=== PATIENT | male | born 1970 | race Caucasian/White ===

== ENCOUNTER 2020-08-24 17:25 | Inpatient (IN) | payer BC, OTHER ==
[2020-08-24] MEDS ORDERED: BAMLANIVIMAB 700 MG in SODIUM CHLORIDE 180 ML IVPB ONE (19:32)
[2020-08-24 19:57] LABS: BASO % 0.3 % (0-2.0); EOS % 0.3 % (0-4.5); HEMOGLOBIN 13.7 GM/dL (11.7-16.9); LYMPH % 11.1 % (8-40); MCH 23.7 pg (25.7-33.7); MCHC 31.8 g/dl (32.0-35.9); MEAN CELL VOLUME 74.6 fl (80-96); NEUT % 76.3 % (42.8-82.8); PLATELET COUNT 171 K/MM3 (134-434); RBC 5.76 M/mm3 (4.00-5.60); RDW 18.5 % (11.9-15.9); WHITE BLOOD COUNT 4.3 K/mm3 (4.0-10.0)
[2020-08-24 20:23] LABS: BLOOD UREA NITROGEN 15.7 mg/dL (7-18); CALCIUM 7.8 mg/dL (8.5-10.1)
[2020-08-24 20:27] LABS: CREATININE 1.3 mg/dL (0.55-1.3)
[2020-08-24 20:29] LABS: BILIRUBIN,TOTAL 0.6 mg/dL (0.2-1); TOT PROT 6.3 g/dl (6.4-8.2)
[2020-08-24 20:46] LABS: EPI CELLS 7 /uL (0-25.1); HYALINE CASTS 2 /uL (0-3.1); URINE APPEARANCE CLEAR; URINE BACTERIA 6 /uL (0-1359); URINE BILIRUBIN NEGATIVE (NEGATIVE); URINE COLOR YELLOW; URINE GLUCOSE (UA) NEGATIVE (NEGATIVE); URINE KETONE TRACE (NEGATIVE); URINE LEUK ESTERASE NEGATIVE (NEGATIVE); URINE NITRITE NEGATIVE (NEGATIVE); URINE PROTEIN TRACE (NEGATIVE); URINE RBC 50 /uL (0-23.9); URINE WBC 3 /uL (0-25.8)
[2020-08-24] MEDS ORDERED: DEXAMETHASONE SOD PHOSPHATE 4 MG/1 ML VIAL IVPUSH ONE (20:57)
[2020-08-24] MEDS ORDERED: ACETAMINOPHEN 1000 MG/100 ML BAG IVPB ONE (20:59)
[2020-08-24] MEDS ORDERED: SODIUM CHLORIDE 0.9% 500 ML INFUS.BAG IV ONE (20:59)
[2020-08-24] MEDS ORDERED: DEXAMETHASONE SOD PHOSPHATE 10 MG/1 ML VIAL ONE (21:08)
[2020-08-24] MEDS ORDERED: ACETAMINOPHEN INJECTION 100 ML IVPB ONE (21:08)
[2020-08-24 21:24] LABS: INR 1.28 (0.83-1.09); PROTHROMBIN TIME (PATIENT) 15.4 SEC (9.7-13.0)
[2020-08-24] MEDS ORDERED: PIPERACILLIN/TAZOB 4.5 GM 4.5 GM in DEXTROSE 5%-WATER 100 ML IVPB ONE (21:26)
[2020-08-24 21:27] LABS: ACTIVATED PTT 33.4 SECONDS (25.2-36.5)
[2020-08-24] MEDS ORDERED: guaiFENesin/D-METHORPHAN HB 10 ML UNIT-DOSE CUPS ONE (21:32)
[2020-08-24 21:36] LABS: BILIRUBIN,DIRECT 0.2 mg/dL (0.0-0.2)
[2020-08-24 21:39] LABS: LDH 340 U/L (87-246)
[2020-08-24] MEDS ORDERED: guaiFENesin/D-M SUGAR-FREE/ACLHOL-FREE 118 ML BOTTLE PO ONE (21:50)
[2020-08-24] MEDS ORDERED: PIPERACILLIN/TAZOB 4.5 GM 4.5 GM/100 ML BAG IVPB ONE (22:39)
[2020-08-24] MEDS ORDERED: TESTOSTERONE CYPIONATE IM SCH (23:45)
[2020-08-25] MEDS ORDERED: VANCOMYCIN HCL 1,500 MG in DEXTROSE 5%-WATER - 500 ML IVPB ONE (00:19)
[2020-08-25] MEDS ORDERED: PIPERACILLIN/TAZOB 3.375 GM 3.375 GM in DEXTROSE 5%-WATER - 50 ML IVPB SCH ×3 (02:00→08:19)
[2020-08-25] MEDS: CLOTRIMAZOLE 10 MG TROCHE PO SCH ×4 (06:14→21:32)
[2020-08-25] MEDS ORDERED: INSULIN SLIDING SCALE (NOVOLOG) 1 VIAL SQ SCH (07:00)
[2020-08-25 07:29] LABS: BASO % 0.2 % (0-2.0); HEMATOCRIT 41.3 % (35.4-49); HEMOGLOBIN 13.2 GM/dL (11.7-16.9); LYMPH % 13.5 % (8-40); MCH 23.6 pg (25.7-33.7); MCHC 31.8 g/dl (32.0-35.9); MEAN PLT VOLUME 7.9 fl (7.5-11.1); MONO % 11.7 % (3.8-10.2); NEUT % 74.6 % (42.8-82.8); PLATELET COUNT 179 K/MM3 (134-434); RBC 5.58 M/mm3 (4.00-5.60); RDW 18.7 % (11.9-15.9)
[2020-08-25] MEDS ORDERED: sitaGLIPtin PHOSPHATE 50 MG TABLET ONE (07:32)
[2020-08-25] MEDS ORDERED: PIPERACILLIN/TAZOB 3.375 GM 3.375 GM/50 ML BAG IVPB ONE (07:32)
[2020-08-25 07:49] LABS: ALBUMIN 2.7 g/dl (3.4-5.0); CALCIUM 7.6 mg/dL (8.5-10.1)
[2020-08-25 07:50] LABS: BLOOD UREA NITROGEN 14.5 mg/dL (7-18); MAGNESIUM 2.2 mg/dL (1.8-2.4)
[2020-08-25 07:52] LABS: CREATININE 0.9 mg/dL (0.55-1.3)
[2020-08-25 07:53] LABS: PHOSPHOROUS 3.4 mg/dL (2.5-4.9)
[2020-08-25 07:54] LABS: TOT PROT 5.6 g/dl (6.4-8.2)
[2020-08-25 07:58] LABS: BILIRUBIN,TOTAL 0.4 mg/dL (0.2-1)
[2020-08-25] MEDS ORDERED: LACTATED RINGERS SOLUTION 1,000 ML/1,000 ML INFUS.BAG IV SCH (08:15)
[2020-08-25] MEDS ORDERED: METOPROLOL TARTRATE 50 MG TABLET (FP) ONE (09:34)
[2020-08-25] MEDS ORDERED: ENOXAPARIN NA (PORCINE) 40 MG/0.4 ML DISP.SYRIN SQ ONE (09:34)
[2020-08-25] MEDS ORDERED: lamoTRIgine 100 MG TABLET ONE (09:34)
[2020-08-25] MEDS: lamoTRIgine 100 MG TABLET PO SCH ×2 (09:45→21:31)
[2020-08-25] MEDS: ENOXAPARIN NA (PORCINE) 40 MG/0.4 ML DISP.SYRIN SQ SCH (09:45)
[2020-08-25] MEDS: METOPROLOL TARTRATE 50 MG TABLET (FP) PO SCH ×2 (09:45→21:31)
[2020-08-25] MEDS ORDERED: PATIENT'S OWN MEDICATION (NON-FORMULARY) (Omeprazole Pediatric Solution 20 MG Capsule.Dr) PO SCH (10:00)
[2020-08-25] MEDS ORDERED: METOPROLOL TARTRATE 25 MG TABLET (FP) PO SCH (10:00)
[2020-08-25] MEDS ORDERED: LIRAGLUTIDE 3 MG/0.5 ML SQ SCH (10:00)
[2020-08-25] MEDS ORDERED: TADALAFIL 5 MG PO SCH (10:00)
[2020-08-25] MEDS ORDERED: buPROPion HCL 100 MG TABLET PO SCH (10:00)
[2020-08-25] MEDS ORDERED: LISINOPRIL 5 MG TABLET ONE (10:51)
[2020-08-25] MEDS: LISINOPRIL 5 MG TABLET PO SCH (10:59)
[2020-08-25] MEDS: BUPROPION HCL 300 MG, BUPROPION HCL 150 MG PO SCH (10:59)
[2020-08-25 11:32] LABS: PH,URINE 5.5 (5.0-8.0); URINE APPEARANCE CLEAR; URINE BILIRUBIN NEGATIVE (NEGATIVE); URINE COLOR YELLOW; URINE GLUCOSE (UA) NEGATIVE (NEGATIVE); URINE KETONE NEGATIVE (NEGATIVE); URINE LEUK ESTERASE NEGATIVE (NEGATIVE); URINE NITRITE NEGATIVE (NEGATIVE); URINE PROTEIN NEGATIVE (NEGATIVE)
[2020-08-25 13:46] VITALS: BMI 32.7
[2020-08-25] MEDS ORDERED: PIPERACILLIN/TAZOBACTAM 3.375 GM VIAL IVPB ONE (17:21)
[2020-08-25] MEDS ORDERED: DEXTROSE 5%-WATER - 50 ML IVPB ONE (17:21)
[2020-08-25] MEDS: PIPERACILLIN/TAZOB 3.375 GM 3.375 GM in DEXTROSE 5%-WATER - 50 ML IVPB SCH (17:30)
[2020-08-25] MEDS ORDERED: PT OWN MED DRAWER 7, Y5N ONE ×3 (18:27→21:47)
[2020-08-25] MEDS: ATORVASTATIN CA 10 MG TABLET (FP) PO SCH (21:31)
[2020-08-25] MEDS: rOPINIRole HCL 2 MG TABLET (FP) PO SCH (22:35)
[2020-08-25] MEDS ORDERED: guaiFENesin/D-M SUGAR-FREE/ACLHOL-FREE 118 ML BOTTLE PO ONE (22:47)
[2020-08-26] MEDS ORDERED: PT OWN MED DRAWER 7, Y5N ONE ×4 (00:47→21:58)
[2020-08-26] MEDS: CLOTRIMAZOLE 10 MG TROCHE PO SCH ×6 (00:48→22:15)
[2020-08-26] MEDS ORDERED: PIPERACILLIN/TAZOBACTAM 3.375 GM VIAL IVPB ONE ×3 (02:07→17:48)
[2020-08-26] MEDS ORDERED: DEXTROSE 5%-WATER - 50 ML IVPB ONE ×3 (02:07→17:48)
[2020-08-26] MEDS: PIPERACILLIN/TAZOB 3.375 GM 3.375 GM in DEXTROSE 5%-WATER - 50 ML IVPB SCH ×3 (02:18→18:32)
[2020-08-26] MEDS ORDERED: ACETAMINOPHEN 325 MG TABLET (FP) PO ONE (07:15)
[2020-08-26 07:25] LABS: BASO % 0.4 % (0-2.0); EOS % 0.3 % (0-4.5); HEMATOCRIT 39.9 % (35.4-49); HEMOGLOBIN 12.7 GM/dL (11.7-16.9); MCH 23.4 pg (25.7-33.7); MCHC 31.9 g/dl (32.0-35.9); MEAN CELL VOLUME 73.6 fl (80-96); MONO % 7.6 % (3.8-10.2); NEUT % 83.7 % (42.8-82.8); PLATELET COUNT 185 K/MM3 (134-434); RBC 5.42 M/mm3 (4.00-5.60); RDW 18.4 % (11.9-15.9)
[2020-08-26 07:36] LABS: ALBUMIN 2.7 g/dl (3.4-5.0); BLOOD UREA NITROGEN 12.5 mg/dL (7-18); CALCIUM 7.6 mg/dL (8.5-10.1)
[2020-08-26 07:42] LABS: BILIRUBIN,TOTAL 0.5 mg/dL (0.2-1); TOT PROT 5.3 g/dl (6.4-8.2)
[2020-08-26] MEDS: METOPROLOL TARTRATE 50 MG TABLET (FP) PO SCH ×2 (09:08→22:14)
[2020-08-26] MEDS: ENOXAPARIN NA (PORCINE) 40 MG/0.4 ML DISP.SYRIN SQ SCH (09:08)
[2020-08-26] MEDS: LISINOPRIL 5 MG TABLET PO SCH (09:09)
[2020-08-26] MEDS: BUPROPION HCL 300 MG, BUPROPION HCL 150 MG PO SCH (09:13)
[2020-08-26 09:14] LABS: HIV INTERPRETATION NEGATIVE (NEGATIVE)
[2020-08-26] MEDS: TAMSULOSIN HCL 0.4 MG CAP PO SCH (10:31)
[2020-08-26] MEDS ORDERED: DEXAMETHASONE SOD PHOSPHATE 4 MG/1 ML VIAL IVPUSH ONE (12:06)
[2020-08-26] MEDS: guaiFENesin/D-METHORPHAN HB 10 ML UNIT-DOSE CUPS PO PRN (13:21)
[2020-08-26] MEDS: ACETAMINOPHEN 325 MG TABLET (FP) PO PRN (13:21)
[2020-08-26] MEDS: FAMOTIDINE 20 MG TABLET PO SCH (13:21)
[2020-08-26] MEDS: lamoTRIgine 100 MG TABLET PO SCH ×2 (14:02→22:14)
[2020-08-26] MEDS ORDERED: lamoTRIgine 100 MG TABLET PO ONE (14:30)
[2020-08-26] MEDS ORDERED: IBUPROFEN 400 MG TABLET (FP) PO ONE (16:15)
[2020-08-26] MEDS ORDERED: lamoTRIgine 100 MG TABLET PO SCH (18:00)
[2020-08-26 19:16] LABS: PH,URINE 5.5 (5.0-8.0); URINE APPEARANCE CLOUDY; URINE BILIRUBIN NEGATIVE (NEGATIVE); URINE COLOR YELLOW; URINE GLUCOSE (UA) NEGATIVE (NEGATIVE); URINE KETONE NEGATIVE (NEGATIVE); URINE LEUK ESTERASE NEGATIVE (NEGATIVE); URINE NITRITE NEGATIVE (NEGATIVE); URINE PROTEIN NEGATIVE (NEGATIVE); URINE UROBILINOGEN 0.2 mg/dL (0.2-1.0)
[2020-08-26] MEDS ORDERED: DEXAMETHASONE 4 MG TABLET (FP) PO SCH (22:00)
[2020-08-26] MEDS: ATORVASTATIN CA 10 MG TABLET (FP) PO SCH (22:14)
[2020-08-26] MEDS: rOPINIRole HCL 2 MG TABLET (FP) PO SCH (22:16)
[2020-08-27] MEDS ORDERED: PIPERACILLIN/TAZOBACTAM 3.375 GM VIAL IVPB ONE ×4 (02:45→21:59)
[2020-08-27] MEDS ORDERED: DEXTROSE 5%-WATER - 50 ML IVPB ONE ×3 (02:45→16:19)
[2020-08-27] MEDS: PIPERACILLIN/TAZOB 3.375 GM 3.375 GM in DEXTROSE 5%-WATER - 50 ML IVPB SCH ×3 (02:49→18:03)
[2020-08-27] MEDS: CLOTRIMAZOLE 10 MG TROCHE PO SCH ×5 (05:17→21:42)
[2020-08-27] MEDS ORDERED: PT OWN MED DRAWER 7, Y5N ONE (05:25)
[2020-08-27] MEDS: METOPROLOL TARTRATE 50 MG TABLET (FP) PO SCH ×2 (09:27→21:41)
[2020-08-27] MEDS: lamoTRIgine 100 MG TABLET PO SCH ×2 (09:27→21:40)
[2020-08-27] MEDS: LISINOPRIL 5 MG TABLET PO SCH (09:27)
[2020-08-27] MEDS: FAMOTIDINE 20 MG TABLET PO SCH (09:27)
[2020-08-27] MEDS: TAMSULOSIN HCL 0.4 MG CAP PO SCH (09:27)
[2020-08-27] MEDS: ENOXAPARIN NA (PORCINE) 40 MG/0.4 ML DISP.SYRIN SQ SCH (09:27)
[2020-08-27] MEDS: DEXAMETHASONE 4 MG TABLET (FP) PO SCH (09:28)
[2020-08-27] MEDS: ACETAMINOPHEN 325 MG TABLET (FP) PO PRN ×3 (10:24→21:42)
[2020-08-27] MEDS: guaiFENesin/D-METHORPHAN HB 10 ML UNIT-DOSE CUPS PO PRN ×3 (10:24→21:41)
[2020-08-27] MEDS: BUPROPION HCL 300 MG, BUPROPION HCL 150 MG PO SCH (10:25)
[2020-08-27] MEDS ORDERED: PANTOPRAZOLE 40 MG TABLET PO ONE (16:30)
[2020-08-27] MEDS: ALPRAZolam 0.25 MG TABLET PO PRN (21:40)
[2020-08-27] MEDS: ATORVASTATIN CA 10 MG TABLET (FP) PO SCH (21:40)
[2020-08-27] MEDS: rOPINIRole HCL 2 MG TABLET (FP) PO SCH (21:41)
[2020-08-28] MEDS: PIPERACILLIN/TAZOB 3.375 GM 3.375 GM in DEXTROSE 5%-WATER - 50 ML IVPB SCH ×3 (01:45→17:32)
[2020-08-28] MEDS: ACETAMINOPHEN 325 MG TABLET (FP) PO PRN ×2 (06:02→22:54)
[2020-08-28] MEDS: CLOTRIMAZOLE 10 MG TROCHE PO SCH ×5 (06:02→22:57)
[2020-08-28] MEDS: guaiFENesin/D-METHORPHAN HB 10 ML UNIT-DOSE CUPS PO PRN ×3 (06:07→23:02)
[2020-08-28] MEDS ORDERED: PT OWN MED DRAWER 7, Y5N ONE (10:14)
[2020-08-28] MEDS ORDERED: DEXTROSE 5%-WATER - 50 ML IVPB ONE ×2 (10:14→17:04)
[2020-08-28] MEDS ORDERED: PIPERACILLIN/TAZOBACTAM 3.375 GM VIAL IVPB ONE ×2 (10:14→17:03)
[2020-08-28] MEDS: DEXAMETHASONE 4 MG TABLET (FP) PO SCH (10:32)
[2020-08-28] MEDS: ENOXAPARIN NA (PORCINE) 40 MG/0.4 ML DISP.SYRIN SQ SCH (10:33)
[2020-08-28] MEDS: LISINOPRIL 5 MG TABLET PO SCH (10:33)
[2020-08-28] MEDS: BUPROPION HCL 300 MG, BUPROPION HCL 150 MG PO SCH (10:34)
[2020-08-28] MEDS: TAMSULOSIN HCL 0.4 MG CAP PO SCH (10:34)
[2020-08-28] MEDS: FAMOTIDINE 20 MG TABLET PO SCH (10:34)
[2020-08-28] MEDS: lamoTRIgine 100 MG TABLET PO SCH ×2 (10:35→22:59)
[2020-08-28] MEDS: METOPROLOL TARTRATE 50 MG TABLET (FP) PO SCH ×2 (10:35→22:56)
[2020-08-28] MEDS: ATORVASTATIN CA 10 MG TABLET (FP) PO SCH (22:55)
[2020-08-28] MEDS: ALPRAZolam 0.25 MG TABLET PO PRN (22:56)
[2020-08-28] MEDS: rOPINIRole HCL 2 MG TABLET (FP) PO SCH (22:57)
[2020-08-29] MEDS ORDERED: PIPERACILLIN/TAZOBACTAM 3.375 GM VIAL IVPB ONE ×2 (01:16→09:16)
[2020-08-29] MEDS ORDERED: DEXTROSE 5%-WATER - 50 ML IVPB ONE ×2 (01:16→09:16)
[2020-08-29] MEDS: PIPERACILLIN/TAZOB 3.375 GM 3.375 GM in DEXTROSE 5%-WATER - 50 ML IVPB SCH ×2 (02:44→09:40)
[2020-08-29] MEDS: guaiFENesin/D-METHORPHAN HB 10 ML UNIT-DOSE CUPS PO PRN ×2 (06:01→12:39)
[2020-08-29] MEDS: ACETAMINOPHEN 325 MG TABLET (FP) PO PRN (06:01)
[2020-08-29] MEDS: CLOTRIMAZOLE 10 MG TROCHE PO SCH ×3 (06:02→13:05)
[2020-08-29] MEDS: ENOXAPARIN NA (PORCINE) 40 MG/0.4 ML DISP.SYRIN SQ SCH (09:41)
[2020-08-29] MEDS: LISINOPRIL 5 MG TABLET PO SCH (09:42)
[2020-08-29] MEDS: FAMOTIDINE 20 MG TABLET PO SCH (09:42)
[2020-08-29] MEDS: TAMSULOSIN HCL 0.4 MG CAP PO SCH (09:42)
[2020-08-29] MEDS: lamoTRIgine 100 MG TABLET PO SCH (09:42)
[2020-08-29] MEDS: DEXAMETHASONE 4 MG TABLET (FP) PO SCH (09:42)
[2020-08-29] MEDS: METOPROLOL TARTRATE 50 MG TABLET (FP) PO SCH (09:45)
[2020-08-29] MEDS: BUPROPION HCL 300 MG, BUPROPION HCL 150 MG PO SCH (09:55)
[2020-08-29] MEDS ORDERED: CLOTRIMAZOLE/BETAMET DIPROP 15 GM TUBE TP SCH (12:00)
[2020-08-29 13:45] VITALS: BP 133/70; PULSE 65; TEMP 98
== END 2020-08-29 15:45 | disposition home or self-care (01) | DRG 177 ==
LOC: JER 17:25 → JERBED 21:05 → J7W 08-25 11:51
PROVIDERS: ADMIT Internal Medicine; ATTEND Internal Medicine
PROC: 8E0ZXY6 Isolation (ICD-10-PCS; 2020-08-24)
PROC: XW13325 Transfusion of Convalescent Plasma (Nonautologous) into Peripheral Vein, Percutaneous Approach, New Technology Group 5 (ICD-10-PCS; principal; 2020-08-27)
DX: U07.1 COVID-19 (principal); J12.89 Other viral pneumonia; I10 Essential (primary) hypertension; E78.5 Hyperlipidemia, unspecified; N40.0 Benign prostatic hyperplasia without lower urinary tract symptoms; E11.9 Type 2 diabetes mellitus without complications; N52.9 Male erectile dysfunction, unspecified; B37.9 Candidiasis, unspecified; R09.02 Hypoxemia; F41.9 Anxiety disorder, unspecified; D72.819 Decreased white blood cell count, unspecified; R50.9 Fever, unspecified; Z22.322 Carrier or suspected carrier of Methicillin resistant Staphylococcus aureus; Z98.84 Bariatric surgery status
CPT/HCPCS: 36415; 36430; 71046-TC-FY; 71250-TC; 76856-TC; 80053; 81003; 82248; 82550; 82553; 82728; 82962; 83615; 83735; 84100; 84132; 84443; 84484; 85025; 85379; 85610; 85730; 86140; 86769; 86850; 86900; 86901; 87040; 87070; 87086; 87116; 87205; 87206; 87389; 87804; 87899; 93005; 93010; 94761; 99285-25; C9803; J0131; P9017; U0003

== ENCOUNTER 2020-09-04 11:14 | Emergency (ER) | payer BC, OTHER | END 2020-09-04 17:21 | disposition home or self-care (01) | LOC: JVIRT 11:14 | DX: U07.1 COVID-19 (principal) | CPT/HCPCS: C9803; Q3014-GT; U0003 ==

== ENCOUNTER 2020-09-12 14:29 | Emergency (ER) | payer BC, OTHER ==
[2020-09-12 14:48] VITALS: BP 128/72; BMI 32.6
[2020-09-12 15:16] VITALS: PULSE 92
== END 2020-09-12 15:40 | disposition home or self-care (01) ==
LOC: JERFT 14:29 → JER 14:29 → JERFT 15:40
DX: Z76.0 Encounter for issue of repeat prescription (principal)
CPT/HCPCS: 99281-25

== ENCOUNTER 2020-09-19 12:44 | Emergency (ER) | payer BC, OTHER | END 2020-09-19 15:15 | disposition home or self-care (01) | LOC: JVIRT 12:44 | DX: U07.1 COVID-19 (principal) | CPT/HCPCS: G2012-GT ==

== ENCOUNTER 2020-12-15 03:25 | Inpatient (IN) | payer BC, OTHER ==
[2020-12-15 03:42] VITALS: BMI 32.6
[2020-12-15] MEDS ORDERED: ACETAMINOPHEN 325 MG TABLET (FP) PO ONE (03:53)
[2020-12-15] MEDS ORDERED: CLINDAMYCIN HCL 300 MG CAPSULE PO ONE (03:56)
[2020-12-15] MEDS ORDERED: VANCOMYCIN 1 GM in D5W (PRE-DOCKED) 1,000 MG/250 ML IVPB ONE (03:56)
[2020-12-15] MEDS ORDERED: ACETAMINOPHEN 325 MG TABLET (FP) ONE (04:09)
[2020-12-15] MEDS ORDERED: VANCOMYCIN 1 GRAM (PRE-DOCKED) 1,000 MG/250 ML BAG IVPB ONE (04:09)
[2020-12-15] MEDS ORDERED: CLINDAMYCIN HCL 150 MG CAPSULE (FP) ONE (04:09)
[2020-12-15 04:18] LABS: BASO % 0.8 % (0-2.0); EOS % 2.2 % (0-4.5); HEMATOCRIT 44.6 % (35.4-49); HEMOGLOBIN 14.2 GM/dL (11.7-16.9); LYMPH % 10.6 % (8-40); MCH 24.2 pg (25.7-33.7); MCHC 31.8 g/dl (32.0-35.9); MEAN CELL VOLUME 76.2 fl (80-96); MONO % 11.9 % (3.8-10.2); NEUT % 74.5 % (42.8-82.8); PLATELET COUNT 234 K/MM3 (134-434); RBC 5.85 M/mm3 (4.00-5.60); WHITE BLOOD COUNT 10.9 K/mm3 (4.0-10.0)
[2020-12-15 04:30] LABS: CHLORIDE 107 mmol/L (98-107); SODIUM 140 mmol/L (136-145)
[2020-12-15 04:32] LABS: CALCIUM 8.5 mg/dL (8.5-10.1)
[2020-12-15 04:33] LABS: ALBUMIN 3.7 g/dl (3.4-5.0); ANION GAP 6 MMOL/L (8-16); BLOOD UREA NITROGEN 19.2 mg/dL (7-18); CO2 28 mmol/L (21-32); GLUCOSE,RANDOM 104 mg/dL (74-106)
[2020-12-15 04:36] LABS: CREATININE 1.1 mg/dL (0.55-1.3); SGOT/AST 17 U/L (15-37); SGPT/ALT 30 U/L (13-61)
[2020-12-15 04:37] LABS: BILIRUBIN,TOTAL 0.3 mg/dL (0.2-1); TOT PROT 6.4 g/dl (6.4-8.2)
[2020-12-15 04:39] LABS: ALK PHOS 68 U/L (45-117)
[2020-12-15] MEDS ORDERED: buPROPion HCL 100 MG TABLET PO SCH (10:00)
[2020-12-15] MEDS ORDERED: lamoTRIgine 100 MG TABLET PO SCH (10:13)
[2020-12-15] MEDS: TAMSULOSIN HCL 0.4 MG CAP PO SCH (10:43)
[2020-12-15] MEDS: ATORVASTATIN CA 10 MG TABLET (FP) PO SCH (10:43)
[2020-12-15] MEDS: LISINOPRIL 5 MG TABLET PO SCH (10:44)
[2020-12-15] MEDS: METOPROLOL TARTRATE 50 MG TABLET (FP) PO SCH ×2 (10:44→21:41)
[2020-12-15] MEDS: HEPARIN NA (PORCINE) 5,000 UNITS/ML 1ML VIAL SQ SCH ×2 (10:44→21:41)
[2020-12-15] MEDS: PANTOPRAZOLE 40 MG TABLET PO SCH (10:44)
[2020-12-15] MEDS ORDERED: PT OWN MED DRAWER 7, Y5N ONE ×4 (10:46→23:03)
[2020-12-15] MEDS: BUPROPION HCL 300 MG, BUPROPION HCL 150 MG PO SCH (12:51)
[2020-12-15] MEDS: lamoTRIgine 100 MG TABLET PO SCH ×2 (12:57→21:41)
[2020-12-15] MEDS: ACETAMINOPHEN 325 MG TABLET (FP) PO PRN ×2 (14:17→23:19)
[2020-12-15] MEDS: MUPIROCIN CA 2% TOPICAL CREAM 15 GM TUBE TP SCH ×2 (14:47→22:25)
[2020-12-15] MEDS ORDERED: VANCOMYCIN/WATER BAGS 1,250 MG/250 ML BAG IVPB SCH (16:00)
[2020-12-15] MEDS: VANCOMYCIN/WATER BAGS 1,250 MG/250 ML BAG IVPB SCH (17:07)
[2020-12-15] MEDS ORDERED: rOPINIRole HCL 2 MG TABLET (FP) PO SCH (22:00)
[2020-12-16] MEDS ORDERED: clonazePAM 0.5 MG TABLET PO ONE (00:08)
[2020-12-16] MEDS: VANCOMYCIN/WATER BAGS 1,250 MG/250 ML BAG IVPB SCH ×2 (04:24→15:33)
[2020-12-16] MEDS ORDERED: PT OWN MED DRAWER 7, Y5N ONE (08:08)
[2020-12-16] MEDS: PANTOPRAZOLE 40 MG TABLET PO SCH (10:13)
[2020-12-16] MEDS: lamoTRIgine 100 MG TABLET PO SCH (10:13)
[2020-12-16] MEDS: TAMSULOSIN HCL 0.4 MG CAP PO SCH (10:13)
[2020-12-16] MEDS: HEPARIN NA (PORCINE) 5,000 UNITS/ML 1ML VIAL SQ SCH (10:14)
[2020-12-16] MEDS: MUPIROCIN CA 2% TOPICAL CREAM 15 GM TUBE TP SCH (10:14)
[2020-12-16] MEDS: ATORVASTATIN CA 10 MG TABLET (FP) PO SCH (10:14)
[2020-12-16] MEDS: LISINOPRIL 5 MG TABLET PO SCH (10:15)
[2020-12-16] MEDS: METOPROLOL TARTRATE 50 MG TABLET (FP) PO SCH (10:15)
[2020-12-16] MEDS: BUPROPION HCL 300 MG, BUPROPION HCL 150 MG PO SCH (10:15)
[2020-12-16 13:23] VITALS: BP 121/75; PULSE 91; TEMP 98.7
[2020-12-16] MEDS: ACETAMINOPHEN 325 MG TABLET (FP) PO PRN (13:50)
[2020-12-16] MEDS ORDERED: LIDOCAINE HCL 1%, 10 MG/ML (20ML VIAL) ONE (17:35)
== END 2020-12-16 19:31 | disposition home or self-care (01) | DRG 603 ==
LOC: JER 03:25 → JERBED 05:13 → J7W 09:12
PROVIDERS: ADMIT Internal Medicine; ATTEND Internal Medicine
DX: L03.011 Cellulitis of right finger (principal); E11.9 Type 2 diabetes mellitus without complications; I10 Essential (primary) hypertension; E78.5 Hyperlipidemia, unspecified; E66.9 Obesity, unspecified; Z68.32 Body mass index [BMI] 32.0-32.9, adult; N40.0 Benign prostatic hyperplasia without lower urinary tract symptoms; K21.9 Gastro-esophageal reflux disease without esophagitis; F41.8 Other specified anxiety disorders
CPT/HCPCS: 36415; 71046-TC-FY; 73130-TC-RT-FY; 80053; 82962; 85025; 85651; 86140; 87070; 87075; 87077; 87205; 99284-25; C9803; J1644; U0003; U0005

== ENCOUNTER 2021-08-27 07:10 | Day surgery (SDC) | payer BC, OTHER ==
[2021-08-20 15:29] VITALS: BMI 30.7
[2021-08-27] MEDS ORDERED: MIDAZOLAM HCL 2 MG/2 ML SINGLE DOSE VIAL ONE (08:30)
[2021-08-27 10:01] VITALS: TEMP 98.6
[2021-08-27 10:19] VITALS: BP 110/61; PULSE 75
== END 2021-08-27 10:56 | disposition home or self-care (01) ==
LOC: FASU 07:10
PROVIDERS: ATTEND Orthopaedic Surgery Hand Surgery
PROC: 0LN70ZZ Release Right Hand Tendon, Open Approach (ICD-10-PCS; 2021-08-27)
PROC: 0LN70ZZ Release Right Hand Tendon, Open Approach (ICD-10-PCS; principal; 2021-08-27 09:30)
DX: M65.331 Trigger finger, right middle finger (principal); M65.841 Other synovitis and tenosynovitis, right hand
CPT/HCPCS: 82962; 88304-TC

== ENCOUNTER 2024-04-13 04:09 | Day surgery (SDC) | payer BC, OTHER ==
[2024-04-11 15:41] VITALS: BMI 33.7
[2024-04-13] MEDS ORDERED: SUCCINYLCHOLINE CHLORIDE 200 MG/10 ML SYRINGE ONE (09:44)
[2024-04-13] MEDS ORDERED: PROPOFOL 40 ML ONE (09:44)
[2024-04-13] MEDS ORDERED: ROCURONIUM BROMIDE 50 MG/5 ML SYRINGE ONE (09:44)
[2024-04-13] MEDS ORDERED: LIDOCAINE HCL/PF 2% SDV 5ML VIAL ONE (09:45)
[2024-04-13] MEDS ORDERED: LIDOCAINE 1%/EPI 1:100000 (20 ML MULTI DOSE VIAL) ONE (09:51)
[2024-04-13] MEDS ORDERED: MIDAZOLAM HCL 2 MG/2 ML SINGLE DOSE VIAL ONE (10:38)
[2024-04-13] MEDS: ceFAZolin SODIUM 1 GM VIAL IVPB ONE (11:18)
[2024-04-13] MEDS ORDERED: DEXAMETHASONE SOD PHOSPHATE 4 MG/1 ML VIAL ONE (11:19)
[2024-04-13] MEDS: OXYMETAZOLINE 0.05% NASAL SOLUTION 15 ML BOTTLE NS ONE (11:28)
[2024-04-13] MEDS: LIDOCAINE 1%/EPI 1:100000 (20 ML MULTI DOSE VIAL) IJ ONE (11:50)
[2024-04-13] MEDS ORDERED: SUGAMMADEX SODIUM 200 MG/2 ML VIAL ONE (12:46)
[2024-04-13] MEDS ORDERED: ONDANSETRON 4 MG/2 ML VIAL ONE (12:46)
[2024-04-13] MEDS ORDERED: ONDANSETRON 4 MG/2 ML VIAL IVPUSH PRN (13:24)
[2024-04-13] MEDS ORDERED: LACTATED RINGERS SOLUTION 1,000 ML IV SCH (13:30)
[2024-04-13] MEDS ORDERED: ACETAMINOPHEN INJECTION 100 ML IVPB ONE (13:45)
[2024-04-13] MEDS: ACETAMINOPHEN 1000 MG/100 ML BAG IVPB ONE (13:48)
[2024-04-13 15:28] VITALS: RESP 20; TEMP 97.2
[2024-04-13 15:32] VITALS: PULSE 85
[2024-04-13] MEDS ORDERED: oxyCODONE HCL 10 MG SUSTAINED ACTING TABLET ONE (16:00)
[2024-04-13] MEDS: oxyCODONE HCL 5 MG TABLET PO PRN (16:12)
[2024-04-13 17:24] VITALS: BP 142/79
== END 2024-04-13 18:40 | disposition home or self-care (01) ==
LOC: JASU-SURG 04:09
PROVIDERS: ATTEND Otolaryngology
PROC: 8E09XBZ Computer Assisted Procedure of Head and Neck Region (ICD-10-PCS; 2024-04-13)
PROC: 09TV8ZZ Resection of Left Ethmoid Sinus, Via Natural or Artificial Opening Endoscopic (ICD-10-PCS; principal; 2024-04-13 10:45)
DX: J32.8 Other chronic sinusitis (principal); J34.2 Deviated nasal septum; J34.3 Hypertrophy of nasal turbinates
CPT/HCPCS: 36415; 82010; 82962; 84550; 88304-TC; 88311-TC; 94760; J0131

== ENCOUNTER 2025-01-30 21:17 | Emergency (ER) | payer BC, OTHER ==
[2025-01-30 21:21] VITALS: BP 140/77; PULSE 91; RESP 18; TEMP 98.5; BMI 32.2
== END 2025-01-30 22:27 | disposition home or self-care (01) ==
LOC: JER 21:17
DX: R10.9 Unspecified abdominal pain (principal); R11.2 Nausea with vomiting, unspecified; R14.0 Abdominal distension (gaseous)
CPT/HCPCS: 99282-25